=== PATIENT | female | born 1980 | race Caucasian/White ===

== ENCOUNTER 2022-08-24 22:07 | Emergency (ER) | payer MEDICAID ==
[~2022-08-24] VITALS: Ht 160 cm; Wt 68.0 kg
[2022-08-24 22:23] VITALS: BP 143/75
== END 2022-08-25 07:19 | disposition home or self-care (01) ==
LOC: ER 22:07
DX: M25.562 Pain in left knee (principal)
CPT/HCPCS: 29505; 73562; 99283